=== PATIENT | male | born 1980 | race Caucasian/White ===

== ENCOUNTER 2017-05-17 08:11 | Emergency (ER) | payer BC ==
[2017-05-17 08:22] VITALS: BP 149/97
--- NOTE | 2017-05-17 08:23 | EDM.PDOC ---
ED HPI GENERAL MEDICAL PROBLEM - General Chief Complaint: Fever Stated Complaint: FEVER,NAUSEA,BODY ACHES Time Seen by Provider: 05/17/17 08:23 Source of Information: Reports: Patient History Limitations: Reports: No Limitations - History of Present Illness INITIAL COMMENTS - FREE TEXT/NARRATIVE: 37-year-old male presents the ED with a 2 day history of fever. Started the night before last with chills fever or diaphoresis then extra heart etc. A mild nonproductive cough. No sinus congestion. No dental pain. Cough is for the most part chronic but he does have a little bit more sputum than normal with a slight yellowish tinge. No blood. He's had a history of diverticulitis that notices no increase in the left rigoberto-abdominal pain. His sores along the groin bilaterally which turns out to be jock itch on exam. There are no pustules or carbuncles. Nausea vomiting occurred twice or 3 times yesterday dark in color. No diarrhea. Onset: Sudden Onset Date: 05/15/17 Onset Time: 23:00 Duration: Day(s): Location: Reports: Generalized (Fever chills black of appetite maladies.) Quality: Reports: Other Severity: Moderate (Acute febrile illness) Improves with: Reports: None Worsens with: Reports: None Context: Denies: Activity, Exercise, Lifting, Sick Contact, Trauma, Other Associated Symptoms: Reports: Cough, cough w sputum, Fever/Chills, Loss of Appetite, Malaise, Nausea/Vomiting, Weakness, Other (Dizzy when he stands up.). Denies: No Other Symptoms (Yesterday vomited 3 times so far today he did keep down a breakfast sandwich.), Confusion, Chest Pain, Diaphoresis, Headaches, Rash , Seizure, Shortness of Breath, Syncope Treatments [employer]: Reports: Other (see below) (None.) Generalized Pain Score (Numeric/FACES): 6 - Related Data Allergies Allergy/AdvReac Type Severity Reaction Status Date / Time No Known Allergies Allergy Verified 05/17/17 08:19 Home Meds: Home Meds Ciprofloxacin HCl [Cipro] 500 mg PO BID #20 tablet 05/17/17 [Rx] metroNIDAZOLE [Flagyl] 500 mg PO Q8H #21 tablet 05/17/17 [Rx] Past Medical History Gastrointestinal History: Reports: Other (See Below) (Acute diverticulitis once in the past.) Social & Family History - Tobacco Use Smoking Status *Q: Current Every Day Smoker (1 pack per day.) - Alcohol Use Alcohol Use History: Yes Days Per Week of Alcohol Use: 4 ED ROS GENERAL - Review of Systems Review Of Systems: See Below Constitutional: Reports: Fever, Chills, Malaise, Weakness, Fatigue, Diaphoresis (Especially night before last), Decreased Appetite HEENT: Reports: No Symptoms Respiratory: Reports: Cough, Sputum ( swelling he felt a bit better). Denies: Wheezing, Pleuritic Chest Pain Cardiovascular: Reports: No Symptoms. Denies: Chest Pain, Blood Pressure Problem, Claudication, Dyspnea on Exertion, Edema, Lightheadedness, Orthopnea, Palpitations Endocrine: Reports: Fatigue GI/Abdominal: Denies: Abdominal Pain, Anorexia, Black Stool, Bloody Stool, Diarrhea, Decreased Appetite, Difficulty Swallowing, Distension, Flatus, Hematemesis, Hematochezia : Reports: Other (Has some sores along the inner thighs and groin area.) Musculoskeletal: Reports: No Symptoms Skin: Reports: Other Neurological: Reports: No Symptoms ED EXAM, GENERAL - Physical Exam Exam: See Below Exam Limited By: No Limitations General Appearance: Alert, WD/WN, Anxious (Moderately) Eye Exam: Bilateral Eye: Normal Inspection Ears: Normal TMs Throat/Mouth: Normal Inspection, Normal Lips, Normal Teeth, Normal Oropharynx, Other (Uvula slightly erythematous smoking) Head: Atraumatic, Normocephalic Neck: Normal Inspection, Supple, Non-Tender, Full Range of Motion. No: Carotid Bruit, Lymphadenopathy (L), Lymphadenopathy (R) Respiratory/Chest: No Respiratory Distress, Lungs Clear, Normal Breath Sounds, No Accessory Muscle Use Cardiovascular: Normal Peripheral Pulses, Regular Rate, Rhythm, No Edema, No Gallop, No Murmur Peripheral Pulses: 2+: Posterior Tibial (L), Posterior Tibial (R), Dorsalis Pedis (L), Dorsalis Pedis (R) GI/Abdominal: Normal Bowel Sounds, Soft, Non-Tender, No Organomegaly, No Distention (Male) Exam: Other (Erythema in the folds of the groin along the lateral scrotum. Testicles are somewhat tender to palpation he states they are always tender. There is no open sores or pustules. He has a bit of fat candidiasis in the genital area.) Back Exam: Normal Inspection, Full Range of Motion. No: CVA Tenderness (L), CVA Tenderness (R) Extremities: Normal Inspection, Normal Range of Motion, Non-Tender, No Pedal Edema, Normal Capillary Refill Neurological: Alert, Oriented, CN II-XII Intact, Normal Cognition, Normal Gait, Normal Reflexes Psychiatric: Normal Affect, Normal Mood Skin Exam: Warm, Dry, Intact, Normal Color, Other (Candidiasis in the groin.) Course - Vital Signs Last Recorded V/S: Last Vital Signs Temp 35.9 C 05/17/17 08:19 Pulse 98 05/17/17 08:19 Resp 18 05/17/17 08:19 BP 149/97 H 05/17/17 08:19 Pulse Ox 99 05/17/17 08:19 - Orders/Labs/Meds Orders: Active Orders 24 hr Category Date Time Status Chest 2V [CR] Stat Exams 05/17/17 08:32 Taken CULTURE BLOOD [BC] Stat Lab 05/17/17 09:01 Received CULTURE BLOOD [BC] Stat Lab 05/17/17 09:20 Received URINALYSIS W/MICROSCOPIC [UA W/MICROSCOPIC] [URIN] Stat Lab 05/17/17 08:32 Uncollected Dextrose 5%-0.9% NaCl [Dextrose 5%-Normal Saline] 1,000 Med 05/17/17 08:45 Active ml IV ASDIRECTED Blood Culture x2 Reflex Set [OM.PC] Stat Oth 05/17/17 08:32 Ordered Medication Orders Dextrose/Sodium Chloride (Dextrose 5%-Normal Saline) 1,000 mls @ 250 mls/hr IV ASDIRECTED [facility] Last Admin: 05/17/17 08:49 Dose: 250 mls/hr Labs: Laboratory Tests 05/17/17 05/17/17 Range/Units 08:35 08:35 WBC 5.75 (4.23-9.07) K/mm3 RBC 5.00 (4.63-6.08) M/mm3 Hgb 15.3 (13.7-17.5) gm/L Hct 45.2 (40.1-51.0) % MCV 90.4 (79.0-92.2) fl MCH 30.6 (25.7-32.2) pg MCHC 33.8 (32.2-35.5) g/dl RDW Std Deviation 46.4 H (35.1-43.9) fL Plt Count 157 L (163-337) K/mm3 MPV 10.9 (9.4-12.3) fl Neutrophils % (Manual) 80 H (40-60) % Band Neutrophils % 0 (0-10) % Lymphocytes % (Manual) 10 L (20-40) % Atypical Lymphs % 0 % Monocytes % (Manual) 10 (2-10) % Eosinophils % (Manual) 0 L (0.8-7.0) % Basophils % (Manual) 0 L (0.2-1.2) Platelet Estimate Adequate RBC Morph Comment Normal Sodium 139 (136-145) mEq/L Potassium 3.5 (3.5-5.1) mEq/L Chloride 102 (98-107) mEq/L Carbon Dioxide 24 (21-32) mEq/L Anion Gap 16.5 H (5-15) BUN 13 (7-18) mg/dL Creatinine 1.2 (0.7-1.3) mg/dL Est Cr Clr Drug Dosing 86.18 mL/min Estimated GFR (MDRD) > 60 (>60) mL/min BUN/Creatinine Ratio 10.8 L (14-18) Glucose 126 H (74-106) mg/dL Calcium 8.6 (8.5-10.1) mg/dL Total Bilirubin 0.9 (0.2-1.0) mg/dL AST 23 (15-37) U/L ALT 51 (16-63) U/L Alkaline Phosphatase 58 (46-116) U/L C-Reactive Protein 11.2 H* (<1.0) mg/dL Total Protein 6.9 (6.4-8.2) g/dl Albumin 3.6 (3.4-5.0) g/dl Globulin 3.3 gm/dL Albumin/Globulin Ratio 1.1 (1-2) Meds: Medications Generic Name Dose Route Start Last Admin Trade Name Freq PRN Reason Stop Dose Admin Dextrose/Sodium Chloride 1,000 mls @ 250 mls/hr 05/17/17 08:45 05/17/17 08:49 Dextrose 5%-Normal Saline IV 250 mls/hr ASDIRECTED AIYANA Administration Discontinued Medications Generic Name Dose Route Start Last Admin Trade Name Freq PRN Reason Stop Dose Admin Metoclopramide HCl 10 mg 05/17/17 08:41 Reglan IVPUSH 05/17/17 08:42 ONETIME ONE - Radiology Interpretation Free Text/Narrative:: 37-year-old male presents to the ED for evaluation of fever of 2 days' duration. Associated chills rigors the night before last. Diaphoresis and sweats as well. Loss of appetite over the last few days. He did keep down a breakfast sandwich this morning. He had nausea vomiting 3 times yesterday dark bilious material. No diarrhea. Examination is difficult as he is extremely squeamish and tender to palpation along the left hemiabdomen. He does have a history of diverticulitis. Is impossible tell by examination whether or not he could have recurrence of diverticulitis. He was concerned about some sores in his perianal and gentle area which is actually jock itch. No open sores or pustules. Plan routine labs and blood cultures 2 to look for source of potential bacteremia. May have just been upper GI symptoms with acute gastritis. He has a mild cough but always does because he smokes. Two-view chest x-ray will be obtained. - Re-Assessments/Exams Free Text/Narrative Re-Assessment/Exam: 05/17/17 08:48 two-view chest x-rays essentially within normal limits. I don't see any evidence of pneumonia. 05/17/17 09:19 labs are back showing a normal white count at 5.75 hemoglobin 15.3 . Platelet count of 157. Chemistry shows sodium of 139 potassium 3.5 before going to bicarbonate is 24. And a gap is up a little bit at 16.5 .CRP is markedly elevated at 11.2 glucose 126. Therefore he will have CT of the abdomen and pelvis with oral contrast and IV contrast to rule out diverticulitis as source of his current illness. White count being low suggest a viral etiology but the CRP suggests a bacterial etiology as to his rigors and chills. 05/17/17 09:30 for financial studies the patient decided to fore go CT of the abdomen and pelvis. I will therefore treat him as if he has a diverticulitis with Cipro 500 twice daily and Flagyl 500 mg 3 times a day for the next week Cipro will be for 10 days. He will return to care if not markedly improved in 36 -48 hours time 05/17/17 10:28 differential on the white count was 80% neutrophils no bands cells noted. Departure - Departure Time of Disposition: 09:31 Disposition: Home, Self-Care 01 Condition: Fair Clinical Impression: Fever of unknown origin, Tinea cruris - Discharge Information Prescriptions: Ciprofloxacin HCl [Cipro] 500 mg PO BID #20 tablet metroNIDAZOLE [Flagyl] 500 mg PO Q8H #21 tablet Instructions: Fever, Adult Referrals: PCP,None [Primary Care Provider] - Forms: ED Department Discharge Additional Instructions: Evaluation the emergent today in regards to development of fever chills and rigors 2 nights ago with associated nausea and vomiting 3 yesterday somewhat better this morning although still have low-grade fever. Lab testing reveals a normal white count but met markers were used for infection CRP is elevated 11.2 with normal being 1. This still suggesting underlying bacterial infection. Chest x-ray two-view was within normal limits. For the source of infection is not pin down but is suspected to be in the GI tract and likely a recurrence of early diverticulitis. As discussed with you did not wish to pursue CT scan of the abdomen and pelvis due to cost and financial constraints. Will treat as if you are suffering from diverticulitis with antibiotic Cipro 500 mg twice daily for 10 days and Flagyl 500 mg 3 times daily for the next 7 days to clear up infection. Expect marked improvement in terms of fever over the next 36 hours. Appetite should improve may continue to use Motrin 600 mg every 6 hours as needed for fever and body ache relief. Return to the hospital if he developed nausea or vomiting or any other symptoms. Suggest picking up topical Lamisil cream and applied to the inner medial skin folds of the thighs and scrotum and perianal area for control of jock itch. - My Orders Last 24 Hours: My Active Orders 05/17/17 08:32 Chest 2V [CR] Stat URINALYSIS W/MICROSCOPIC [UA W/MICROSCOPIC] [URIN] Stat Blood Culture x2 Reflex Set [OM.PC] Stat 05/17/17 08:45 Dextrose 5%-0.9% NaCl [Dextrose 5%-Normal Saline] 1,000 ml IV ASDIRECTED 05/17/17 09:01 CULTURE BLOOD [BC] Stat 05/17/17 09:20 CULTURE BLOOD [BC] Stat - Assessment/Plan Last 24 Hours: My Active Orders 05/17/17 08:32 Chest 2V [CR] Stat URINALYSIS W/MICROSCOPIC [UA W/MICROSCOPIC] [URIN] Stat Blood Culture x2 Reflex Set [OM.PC] Stat 05/17/17 08:45 Dextrose 5%-0.9% NaCl [Dextrose 5%-Normal Saline] 1,000 ml IV ASDIRECTED 05/17/17 09:01 CULTURE BLOOD [BC] Stat 05/17/17 09:20 CULTURE BLOOD [BC] Stat
[2017-05-17] MEDS ORDERED: Metoclopramide 10 MG/2 ML SDV IVPUSH ONE (08:41)
[2017-05-17] MEDS ORDERED: Dextrose 5%-0.9% NaCl 1,000 ML IV SCH (08:45)
--- NOTE | 2017-05-17 10:41 | CR ---
Chest: Two views of the chest were obtained. Comparison: No previous chest x-ray. Heart size and mediastinum are normal. Lungs are clear. Bony structures appear unremarkable for the patient's age. Impression: 1. Nothing acute is identified on two-view chest x-ray. Diagnostic code #1
== END 2017-05-17 10:08 | disposition home or self-care (01) ==
LOC: JD.ED 08:11
DX: R50.9 Fever, unspecified (principal); B35.6 Tinea cruris; R61 Generalized hyperhidrosis; F17.210 Nicotine dependence, cigarettes, uncomplicated
CPT/HCPCS: 36415; 71020; 80053; 85025; 86140; 87040; 96360; 96361; 99284; J7042